=== PATIENT | female | born 2000 | race Caucasian/White ===

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

== ENCOUNTER 2020-05-02 15:43 | Emergency (ER) | payer BC ==
[2020-05-02 16:14] VITALS: BP 120/58; PULSE 91
--- NOTE | 2020-05-02 16:27 | EDM.PDOC ---
ED HPI GENERAL MEDICAL PROBLEM - General Chief Complaint: Upper Extremity Injury/Pain Stated Complaint: INJURED R HAND Time Seen by Provider: 05/02/20 15:43 Source of Information: Reports: Patient History Limitations: Reports: No Limitations - History of Present Illness INITIAL COMMENTS - FREE TEXT/NARRATIVE: HISTORY AND PHYSICAL: History of present illness: Review of systems: As per history of present illness and below otherwise all systems reviewed and negative. Past medical history: As per history of present illness and as reviewed below otherwise noncontributory. Surgical history: As per history of present illness and as reviewed below otherwise noncontributory. Social history: See social history for further information Family history: As per history of present illness and as reviewed below otherwise noncontributory. Physical exam: General: HEENT: Atraumatic, normocephalic, pupils equal and reactive bilaterally, negative for conjunctival pallor or scleral icterus, mucous membranes moist, TMs normal bilaterally, throat clear, neck supple, nontender, trachea midline. No drooling or trismus noted. No meningeal signs. No hot potato voice noted. Lungs: Clear to auscultation, breath sounds equal bilaterally, chest nontender. Heart: S1S2, regular rate and rhythm without overt murmur Abdomen: Soft, nondistended, nontender. Negative for masses or hep atosplenomegaly. Negative for costovertebral tenderness. Pelvis: Stable nontender. Genitourinary: Deferred. Rectal: Deferred. Skin: Intact, warm, dry. No lesions or rashes noted. Extremities: Atraumatic, moves all extremities per self without difficulty or deficits, negative for cords or calf pain. Neurovascular unremarkable. Neuro: Awake, alert, oriented. Cranial nerves II through XII unremarkable. Cerebellum unremarkable. Motor and sensory unremarkable throughout. Exam nonfocal. Notes: Supportive care measures were reviewed and discussed. Voices understanding and is agreeable to plan of care. Denies any further questions or concerns at this time. Diagnostics: Hand x-ray Therapeutics: 11/13 cast splint Prescription: Purlear (#20) Impression: Right fifth metacarpal fracture Plan: 1. Rest, ice, elevate the affected extremity. Please wear the splint as directed. 2. Tylenol and/or Ibuprofen as needed for pain management. Purlear for moderate to severe pain. This medication may cause drowsiness so do not take it while driving or needing to be functioning outside of the house. DO NOT MIX WITH ALCOHOL. 3. Follow up with the Hand Surgeon, Dr Rasmussen or Dr Jasso at [facility] in [place]. 4. Return to the ED as needed and as discussed. Definitive disposition and diagnosis as appropriate pending reevaluation and review of above. right hand Pain Score (Numeric/FACES): 6 - Related Data Allergies Allergy/AdvReac Type Severity Reaction Status Date / Time No Known Allergies Allergy Verified 05/02/20 16:10 Home Meds: Home Meds . [No Known Home Meds] 07/13/14 [History] Past Medical History - Past Health History Medical/Surgical History: Denies Medical/Surgical History - Infectious Disease History Infectious Disease History: Reports: Chicken Pox - Past Surgical History HEENT Surgical History: Reports: Tonsillectomy Social & Family History - Family History Family Medical History: Noncontributory - Tobacco Use Smoking Status *Q: Never Smoker - Caffeine Use Caffeine Use: Reports: Coffee, Energy Drinks - Recreational Drug Use Recreational Drug Use: No Review of Systems - Review of Systems Review Of Systems: Comprehensive ROS is negative, except as noted in HPI. ED EXAM, GENERAL - Physical Exam Exam: See Below (See dictation) Course - Vital Signs Last Recorded V/S: Last Vital Signs Temp 96.5 F L 05/02/20 16:11 Pulse 91 05/02/20 16:11 Resp 17 05/02/20 16:11 BP 120/58 L 05/02/20 16:11 Pulse Ox 97 05/02/20 16:11 - Orders/Labs/Meds Orders: Active Orders 24 hr Category Date Time Status DME for Discharge [COMM] Stat Oth 05/02/20 16:21 Ordered Departure - Departure Time of Disposition: 16:40 Disposition: Home, Self-Care 01 Clinical Impression: Metacarpal bone fracture - Discharge Information Instructions: Metacarpal Fracture, [id number] Referrals: PCP,None [Primary Care Provider] - Forms: ED Department Discharge Additional Instructions: The following information is given to patients seen in the emergency department who are being discharged to home. This information is to outline your options for follow-up care. We provide all patients seen in our emergency department with a follow-up referral. The need for follow-up, as well as the timing and circumstances, are variable depending upon the specifics of your emergency department visit. If you don't have a primary care physician on staff, we will provide you with a referral. We always advise you to contact your personal physician following an emergency department visit to inform them of the circumstance of the visit and for follow-up with them and/or the need for any referrals to a consulting specialist. The emergency department will also refer you to a specialist when appropriate. This referral assures that you have the opportunity for follow-up care with a specialist. All of these measure are taken in an effort to provide you with optimal care, which includes your follow-up. Under all circumstances we always encourage you to contact your private physician who remains a resource for coordinating your care. When calling for follow-up care, please make the office aware that this follow-up is from your recent emergency room visit. If for any reason you are refused follow-up, please contact the [facility] Emergency Department at and asked to speak to the emergency department charge nurse. Hand Surgery: [facility] [address] 1. Rest, ice, elevate the affected extremity. Please wear the splint as directed. 2. Tylenol and/or Ibuprofen as needed for pain management. Purlear for moderate to severe pain. This medication may cause drowsiness so do not take it while driving or needing to be functioning outside of the house. DO NOT MIX WITH ALCOHOL. 3. Follow up with the Hand Surgeon, Dr Rasmussen or Dr Jasso at [facility]. 4. Return to the ED as needed and as discussed. Sepsis Event Note (ED) - Evaluation Sepsis Screening Result: No Definite Risk - Focused Exam Vital Signs: Vital Signs Temp Pulse Resp BP Pulse Ox 05/02/20 16:11 96.5 F L 91 17 120/58 L 97 - My Orders Last 24 Hours: My Active Orders 05/02/20 16:21 DME for Discharge [COMM] Stat - Assessment/Plan Last 24 Hours: My Active Orders 05/02/20 16:21 DME for Discharge [COMM] Stat
--- NOTE | 2020-05-02 16:33 | CR ---
Right hand: 3 views the right hand were obtained. Fracture is identified within the distal right fifth metacarpal with minimal apex posterior angulation. Soft tissue swelling is identified. No additional fracture or other bony abnormality is appreciated. Impression: 1. Minimally angulated distal right fifth metacarpal fracture with soft tissue swelling. Diagnostic code #3 Study was dictated in MDT
== END 2020-05-02 16:50 | disposition home or self-care (01) ==
LOC: MW.ED 15:43
DX: S62.316A Displaced fracture of base of fifth metacarpal bone, right hand, initial encounter for closed fracture (principal); W22.8XXA Striking against or struck by other objects, initial encounter
CPT/HCPCS: 29130; 73130-26-RT; 73130-RT; 99283; 99283-25

== ENCOUNTER 2022-03-11 14:44 | Inpatient (IN) | payer BC, MEDICAID ==
[2022-03-11] MEDS ORDERED: Sodium Chloride 0.9% 2.5 ML Syringe FLUSH PRN (16:42)
[2022-03-11] MEDS ORDERED: Misoprostol 200 MCG Tab PO PRN (16:42)
[2022-03-11] MEDS ORDERED: Butorphanol 1 MG/ML SDV IVPUSH PRN (16:42)
[2022-03-11] MEDS ORDERED: Sodium Chloride 0.9% 10 ML Syringe FLUSH PRN (16:42)
[2022-03-11] MEDS ORDERED: Carboprost Tromethamine 250 MCG/1 ML Amp IM PRN (16:42)
[2022-03-11] MEDS ORDERED: Tranexamic Acid 1,000 MG in Sodium Chloride 0.9% 100 ML IV PRN (16:42)
[2022-03-11] MEDS ORDERED: Ondansetron 4 MG/2 ML SDV IVPUSH PRN (16:42)
[2022-03-11] MEDS ORDERED: Water For Irrigation,Sterile 1,000 ML Container IRR PRN (16:42)
[2022-03-11] MEDS ORDERED: Methylergonovine 0.2 MG/1 ML Amp IM PRN (16:42)
[2022-03-11] MEDS ORDERED: Lidocaine 1% 50 ML MDV INJECT PRN (16:42)
[2022-03-11] MEDS ORDERED: Sodium Chloride 0.9% 20 ML SDV IV PRN (16:42)
[2022-03-11] MEDS ORDERED: Oxytocin/0.9 % Sodium Chloride 30 UNIT/500 ML BAG IV SCH (16:45)
[2022-03-11] MEDS ORDERED: Lactated Ringers 1,000 ML IV SCH (16:45)
[2022-03-11] MEDS ORDERED: ePHEDrine 50 MG/ML SDV IVPUSH PRN (20:54)
[2022-03-11] MEDS ORDERED: Acetaminophen 500 MG Tab PO PRN ×2 (22:37)
[2022-03-11] MEDS ORDERED: Docusate Sodium 100 MG Cap PO PRN (22:37)
[2022-03-11] MEDS ORDERED: oxyCODONE 5 MG Tab PO PRN (22:37)
[2022-03-11] MEDS ORDERED: Bisacodyl 10 MG Supp RECTAL PRN (22:37)
[2022-03-11] MEDS ORDERED: Ibuprofen 400 MG Tab PO PRN (22:37)
[2022-03-11] MEDS ORDERED: Benzocaine/Menthol 20%-0.5% Spray 78 GM Cannister TOP PRN (22:37)
[2022-03-11] MEDS ORDERED: Lanolin 100% Cream 7 GM Tube TOP PRN (22:37)
[2022-03-12] MEDS: Ibuprofen 800 MG Tab PO PRN ×3 (01:29→17:17)
[2022-03-12] MEDS: Witch Hazel Medicated Pads 40/Jar TOP PRN (01:30)
[2022-03-13] MEDS: Ibuprofen 800 MG Tab PO PRN (03:39)
[2022-03-13 07:47] VITALS: BP 117/67; PULSE 86
[2022-03-13] MEDS: Witch Hazel Medicated Pads 40/Jar TOP PRN (11:01)
== END 2022-03-13 12:05 | disposition home or self-care (01) | DRG 560 ==
LOC: MW.OBCHECK 14:44 → MW.OB 14:46 → MW.OBCHECK 16:41 → MW.OB 16:42 → OBSVTOIN 21:56 → MW.OB 03-12 13:36
PROVIDERS: ADMIT Obstetrics & Gynecology; ATTEND Obstetrics & Gynecology
PROC: 10E0XZZ Delivery of Products of Conception, External Approach (ICD-10-PCS; principal; 2022-03-11)
PROC: 0UQMXZZ Repair Vulva, External Approach (ICD-10-PCS; 2022-03-11)
DX: O77.0 Labor and delivery complicated by meconium in amniotic fluid (principal); O99.344 Other mental disorders complicating childbirth; Z3A.39 39 weeks gestation of pregnancy; Z37.0 Single live birth; O70.0 First degree perineal laceration during delivery; Z20.822 Contact with and (suspected) exposure to COVID-19; F41.9 Anxiety disorder, unspecified
CPT/HCPCS: 01967; 36415; 59025; 59409; 84112; 85014; 85018; 85027; 86592; 86850; 86900; 86901; A9270-GY; J0595; J2590; J7120; U0002

== ENCOUNTER 2023-06-07 01:37 | Emergency (ER) | payer BC, MEDICAID ==
[2023-06-07] MEDS ORDERED: Acetaminophen 500 MG Tab PO ONE (01:47)
[2023-06-07 02:37] VITALS: BP 110/74; PULSE 73
== END 2023-06-07 02:36 | disposition home or self-care (01) ==
LOC: MW.ED 01:37
DX: S60.211A Contusion of right wrist, initial encounter (principal); W10.9XXA Fall (on) (from) unspecified stairs and steps, initial encounter
CPT/HCPCS: 73110; 99283; A9270

== ENCOUNTER 2024-06-14 20:15 | Inpatient (IN) | payer BC ==
[2024-06-15] MEDS ORDERED: Sodium Chloride 0.9% 10 ML Syringe FLUSH PRN (01:25)
[2024-06-15] MEDS ORDERED: Water For Irrigation,Sterile 1,000 ML Container IRR PRN (01:25)
[2024-06-15] MEDS ORDERED: Ondansetron 4 MG/2 ML SDV IVPUSH PRN (01:25)
[2024-06-15] MEDS ORDERED: Tranexamic Acid IN NACL,ISO-OS 1,000 MG in Premix Bag 1 BAG IV PRN (01:25)
[2024-06-15] MEDS ORDERED: Misoprostol 200 MCG Tab PO PRN (01:25)
[2024-06-15] MEDS ORDERED: Sodium Chloride 0.9% 20 ML SDV IV PRN (01:25)
[2024-06-15] MEDS ORDERED: Carboprost Tromethamine 250 MCG/1 mL Vial IM PRN (01:25)
[2024-06-15] MEDS ORDERED: Sodium Chloride 0.9% 2.5 ML Syringe FLUSH PRN (01:25)
[2024-06-15] MEDS ORDERED: Butorphanol 2 MG/ML SDV IVPUSH PRN (01:25)
[2024-06-15] MEDS ORDERED: Oxytocin/0.9 % Sodium Chloride 30 UNIT/500 ML BAG IV SCH (01:30)
[2024-06-15 02:14] LABS: HEMOGLOBIN 10.7 g/dL (12.0-16.0); MEAN CORPUSCULAR HEMOGLOBIN 30.7 pg (28.0-32.0); MEAN CORPUSCULAR HGB CONC 34.5 g/dL (32.0-36.0); MEAN CORPUSCULAR VOLUME 89.1 fL (83.0-99.0); PLATELET COUNT,PLT 140 K/uL (150-400); RED BLOOD CELL COUNT 3.48 M/uL (4.10-5.30); WHITE BLOOD CELL COUNT,WBC 9.98 K/uL (3.9-11.3)
[2024-06-15] MEDS ORDERED: Phenylephrine HCl In 0.9% NaCl 1 MG/10 ML Syringe IVPUSH PRN (04:19)
[2024-06-15] MEDS ORDERED: ePHEDrine 50 MG/ML SDV IVPUSH PRN ×2 (04:19)
[2024-06-15] MEDS ORDERED: Ropivacaine HCl/PF 400 MG in Premix Bag 1 BAG EPIDUR SCH (04:30)
[2024-06-15] MEDS ORDERED: dexmedeTOMIDine HCl 200 MCG/2 ML SDV EPIDUR SCH (04:30)
[2024-06-15] MEDS: Lactated Ringers 1,000 ML IV SCH (10:10)
[2024-06-15] MEDS: Oxytocin/0.9 % Sodium Chloride 30 UNIT/500 ML BAG IV SCH (10:10)
[2024-06-15] MEDS: Methylergonovine 0.2 MG/1 ML Amp IM PRN (12:12)
[2024-06-15] MEDS: Lidocaine 1% 50 ML MDV INJECT PRN (12:14)
[2024-06-15] MEDS ORDERED: Lanolin 100% Cream 7 GM Tube TOP PRN (14:00)
[2024-06-15] MEDS ORDERED: oxyCODONE 5 MG Tab PO PRN (14:00)
[2024-06-15] MEDS ORDERED: Docusate Sodium 100 MG Cap PO PRN (14:00)
[2024-06-15] MEDS ORDERED: Witch Hazel Medicated Pads 40/Jar TOP PRN (14:00)
[2024-06-15] MEDS ORDERED: Acetaminophen 500 MG Tab PO PRN (14:00)
[2024-06-15] MEDS: Benzocaine/Menthol 20%-0.5% Spray 78 GM Cannister TOP PRN (14:20)
[2024-06-15] MEDS: Ibuprofen 800 MG Tab PO PRN (14:21)
[2024-06-15 17:32] LABS: HEMATOCRIT 31.6 % (37.0-47.0); HEMOGLOBIN 10.9 g/dL (12.0-16.0)
[2024-06-15 18:17] VITALS: BP 109/56; PULSE 77
== END 2024-06-15 19:00 | disposition home or self-care (01) | DRG 560 ==
LOC: MW.OB 20:15 → MW.OBCHECK 20:15 → OBSVTOIN 06-15 01:25 → MW.OBCHECK 06-15 01:25 → MW.OB 06-15 01:25
PROVIDERS: ADMIT Obstetrics & Gynecology; ATTEND Obstetrics & Gynecology
PROC: 10E0XZZ Delivery of Products of Conception, External Approach (ICD-10-PCS; principal; 2024-06-15)
PROC: 0KQM0ZZ Repair Perineum Muscle, Open Approach (ICD-10-PCS; 2024-06-15)
PROC: 10907ZC Drainage of Amniotic Fluid, Therapeutic from Products of Conception, Via Natural or Artificial Opening (ICD-10-PCS; 2024-06-15)
DX: O60.14X0 Preterm labor third trimester with preterm delivery third trimester, not applicable or unspecified (principal); Z37.0 Single live birth; O99.344 Other mental disorders complicating childbirth; F41.9 Anxiety disorder, unspecified; O99.02 Anemia complicating childbirth; O70.1 Second degree perineal laceration during delivery; Z3A.36 36 weeks gestation of pregnancy; Z79.899 Other long term (current) drug therapy; Z90.89 Acquired absence of other organs
CPT/HCPCS: 36415; 59025; 59409; 85014; 85018; 85027; 86592; 86850; 86900; 86901; A9270-GY; J2001; J2210; J2590; J7120